=== PATIENT | male | born 1940 | race Caucasian/White ===

== ENCOUNTER 2018-08-19 07:10 | Day surgery (SDC) | payer MEDICARE, OTHER ==
[2018-08-18 10:52] LABS: HEMOGLOBIN 13.3 g/dL (13.5-17.5); MCH 30.9 pg (26.0-34.0); MCV 88.2 fL (80.0-100.0); RBC 4.31 10x6/uL (4.20-6.10); RDW 13.3 % (11.5-14.5); WBC 3.6 10x3/uL (4.8-10.8)
[~2018-08-19] VITALS: Ht 175.3 cm; Wt 70.8 kg
--- NOTE | ~2018-08-19 | OP ---
PATIENT NAME: THANG ROSADO MEDICAL RECORD: [id number] :42 LOCATION:D.OPS ADMISSION DATE: SURGEON: OLMAN UMANA MD DATE OF OPERATION: 08/19/2018 SURGEON: Olman Umana MD ANESTHESIA: MAC by Sharda Mann CRNA. DIAGNOSIS: Elevated PSA 6.9. FINDINGS: 43 gram prostate with intraprostatic stones. No hypoechoic lesions. PROCEDURE: Transrectal ultrasound and prostate biopsy. SPECIMENS: Prostate biopsy cores. CLINICAL HISTORY: This is a 78-year-old male, who was found to have an elevated PSA of 5.4 in December of 2017. He had a repeat PSA performed in June of 2018 and this was 6.9. He comes today to have a prostate biopsy. He has no significant voiding symptoms. He has no family history of prostate cancer. He is not allergic to any medications. 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 DESCRIPTION OF PROCEDURE: The patient was given IV sedation. He was then placed into dorsal lithotomy position. The transrectal ultrasound probe was introduced and prostate size measurements were obtained. We obtained a size of 43 grams. Stones are found at the junction between the BPH and the compressed prostate tissue. We then performed sextant biopsies with at least 3 cores from each sextant. Once all the specimens were obtained, the procedure was terminated. I will see him in followup later on this week to review the pathology with him. TRANSINT:[id number] Voice Confirmation ID: [id number] DOCUMENT ID: [id number] OLMAN UMANA MD at 1641 CC: [id number] DICTATION DATE: 08/19/18 1529 ORDER TAKERS SUPERVISOR: 08/19/18 1559 REG [facility] [address] [id number]
[~2018-08-19 07:10] MED LIST: ALTACE5 MG PO; ASPIRIN EC81 M1 PO; FLOMAX0.4 MG PO; HYDROCODONE-APA1 TAB PO; NORVASC5 MG PO; OMEPRAZOLE40 MG PO; TOPROL XL50 MG PO; ZOCOR20 MG PO
[2018-08-19 07:41] VITALS: BP 134/71; Ht 175.3 cm; Wt 70.8 kg
== END 2018-08-19 16:25 | disposition home or self-care (01) ==
LOC: D.OPS 07:10 → D.PAN 12:00 → D.OPS 12:00
PROVIDERS: Anesthesiology
DX: R97.20 Elevated prostate specific antigen [PSA] (principal); Z01.812 Encounter for preprocedural laboratory examination